=== PATIENT | female | born 1940 | race Caucasian/White ===

== ENCOUNTER 2017-10-05 12:52 | Inpatient (IN) | payer MEDICARE, OTHER ==
[2017-10-05 13:34] LABS: ADD MAN DIFF? NO
[2017-10-05 13:35] LABS: BASOPHILS % 0.1 % (0.0-2.0); HEMATOCRIT 36.4 % (37.0-47.0); HEMOGLOBIN 11.5 g/dl (12.0-16.0); LYMPHOCYTES # 0.8 10^3/ul (0.8-2.9); MEAN CORPUSCULAR HGB CONC 31.6 g/dl (32.0-37.0); MEAN CORPUSCULAR VOLUME 85.4 fl (82.0-101.0); MEAN PLATELET VOLUME 10.7 fl (7.4-10.4); MONOCYTE # 0.7 10^3/ul (0.3-0.9); MONOCYTES % 5.2 % (0.0-11.0); NEUTROPHIL # 11.1 10^3/ul (1.6-7.5); NEUTROPHILS % 88.3 % (39.0-77.0); PLATELET COUNT 436 10^3/UL (140-415); RED BLOOD COUNT 4.26 10^6/ul (4.20-5.40); RED CELL DISTRIBUTION WIDTH 16.3 % (11.5-14.5)
[2017-10-05 13:35] LABS: WHITE BLOOD COUNT 12.6 10^3/ul (4.8-10.8)
[2017-10-05 13:52] LABS: INR 1.04; PROTIME 13.7 Sec (11.9-14.9); PT RATIO 1.1
[2017-10-05 13:53] LABS: PARTIAL THROMBOPLASTIN TIME 30.4 Sec (25.0-35.0)
[2017-10-05 13:55] LABS: ALANINE AMINOTRANSFERASE 26 IU/L (13-69); ALBUMIN 4.5 g/dl (3.3-4.9); ALBUMIN/GLOBULIN RATIO 1.21; ALKALINE PHOSPHATASE 159 IU/L (42-121); ANION GAP 18 (8-16); ASPARTATE AMINO TRANSFERASE 16 IU/L (15-46); BILIRUBIN,INDIRECT 0.3 mg/dl (0-1.1); BILIRUBIN,TOTAL 0.3 mg/dl (0.2-1.3); BLOOD UREA NITROGEN 36 mg/dl (7-20); CALCIUM 9.8 mg/dl (8.4-10.2); CARBON DIOXIDE 27 mmol/L (21-31); CHLORIDE 108 mmol/L (97-110); MAGNESIUM 2.3 mg/dl (1.7-2.5); PHOSPHORUS 3.7 mg/dl (2.5-4.9); SODIUM 149 mmol/L (135-144); TOTAL PROTEIN 8.2 g/dl (6.1-8.1)
[2017-10-05 13:55] LABS: LACTIC ACID 1.7 mmol/L (0.5-2.0)
[2017-10-05 14:03] LABS: GLUCOSE 443 mg/dl (70-220)
[2017-10-05] MEDS: SOD CHLORIDE 0.9% 1,400 ML IV (14:03)
[2017-10-05 14:11] LABS: TROPONIN-I < 0.012 ng/ml (0.00-0.12)
[2017-10-05 14:12] LABS: AADO2 Arterial 34.2 mmHg (7.0-24.0); Allen Test ACCEPTAB; Arterial Base Excess 2.2 mmol/L (-3.0-3); Arterial Blood Gas Oxygen Sat 98.4 mmHG (95.0-100.0); Arterial COHb 0 % (0.0-3.0); Arterial Fraction of Oxyhgb 98.1 % (93.0-99.0); Arterial HCO3 24.3 mmol/L (22.0-26.0); Arterial MetHb 0.3 % (0.0-1.5); MODE NASAL CANNULA; Site Left Radial
[2017-10-05 15:43] LABS: ADD UMIC YES; UR ASCORBIC ACID 40 mg/dL (NEGATIVE); UR BACTERIA MANY /HPF (NONE SEEN); UR BILIRUBIN (Dip) NEGATIVE (NEGATIVE); UR BLOOD (Dip) NEGATIVE (NEGATIVE); UR CLARITY TURBID (CLEAR); UR COLOR RED (YELLOW); UR GLUCOSE (Dip) 3+ mg/dL (NEGATIVE); UR KETONES (Dip) TRACE mg/dL (NEGATIVE); UR LEUKOCYTE ESTERASE (Dip) TRACE Leu/ul (NEGATIVE); UR MUCUS FEW /HPF (NONE SEEN); UR NITRITE (Dip) POSITIVE (NEGATIVE); UR RBC 2 /HPF (0-5); UR SPECIFIC GRAVITY (Dip) 1.025 (1.003-1.030); UR TOTAL PROTEIN (Dip) 2+ mg/dl (NEGATIVE); UR UROBILINOGEN (Dip) NEGATIVE (NEGATIVE); UR WBC 5 /HPF (0-5)
[2017-10-05] MEDS: PIPER-TAZO 3.375 GM IV (PMX) 100 ML IVPB (17:04)
[2017-10-05] MEDS: INSULIN LISPRO 100 UNIT/ML VIAL SC (17:17)
[2017-10-05] MEDS ORDERED: MAGNESIUM HYDROXIDE 30ML CUP GTB (18:00)
[2017-10-05] MEDS ORDERED: MAGNESIUM HYDROXIDE 30ML CUP PO (18:00)
[2017-10-05] MEDS ORDERED: DOCUSATE SODIUM 100 MG CAP PO (18:00)
[2017-10-05] MEDS ORDERED: NACL 0.9% 3 ML SYG IV (18:00)
[2017-10-05] MEDS ORDERED: hydrALAzine 20 MG INJ IV (18:00)
[2017-10-05] MEDS ORDERED: ACETAMINOPHEN 325 MG TAB PO (18:00)
[2017-10-05] MEDS ORDERED: ONDANSETRON 4 MG INJ IV (18:00)
[2017-10-05] MEDS ORDERED: ACETAMINOPHEN 650MG/20.3ML CUP GTB ×2 (18:00)
[2017-10-05] MEDS ORDERED: HYDROCODONE/APAP (5/325) TAB PO (18:00)
[2017-10-05] MEDS ORDERED: GLUCOSE GEL 15 GRAM TUBE PO ×2 (19:30)
[2017-10-05] MEDS ORDERED: GLUCAGON 1 MG INJ IM (19:30)
[2017-10-05] MEDS ORDERED: DEXTROSE 50% 50 ML SYRINGE IV ×2 (19:30)
[2017-10-05] MEDS ORDERED: GLUCOSE GEL 15 GRAM TUBE BUCCAL (19:30)
[2017-10-05 19:44] LABS: LACTIC ACID 3.6 mmol/L (0.5-2.0)
[2017-10-05] MEDS ORDERED: SOD CHLORIDE 0.9% 500 ML IV (20:00)
[2017-10-05] MEDS: INSULIN ASPART [NOVOLOG] 3 ML PEN SC ×2 (20:00→21:00)
[2017-10-05] MEDS: SOD CHLORIDE 0.9% 1,000 ML IV (20:10)
[2017-10-05] MEDS: SOD CHLORIDE 0.9% 500 ML IV (22:03)
[2017-10-05] MEDS: DOCUSATE SODIUM 100 MG CAP PO (22:35)
[2017-10-05] MEDS: BACLOFEN 10 MG TAB PO (22:35)
[2017-10-05] MEDS: METOPROLOL 25 MG TAB GTB (22:36)
[2017-10-05] MEDS: INSULIN GLARGINE [LANtus] 3 ML PEN SC (22:39)
[2017-10-05 22:59] LABS: LACTIC ACID 1.2 mmol/L (0.5-2.0)
[2017-10-05] MEDS: MEROPENEM 1 GM/50ML(PMX) 50 ML IV (23:09)
[2017-10-06] MEDS: ACCU-CHEK XX (01:12)
[2017-10-06] MEDS: hydrALAzine 20 MG INJ IV ×2 (02:19→05:22)
[2017-10-06] MEDS: ACETAMINOPHEN 650 MG SUPP PR (05:20)
[2017-10-06 05:22] LABS: ADD MAN DIFF? NO
[2017-10-06] MEDS: PANTOPRAZOLE (EC) 40 MG TAB PO (05:24)
[2017-10-06 05:27] LABS: BASOPHILS % 0.2 % (0.0-2.0); HEMATOCRIT 34.2 % (37.0-47.0); HEMOGLOBIN 10.6 g/dl (12.0-16.0); LYMPHOCYTES # 0.9 10^3/ul (0.8-2.9); LYMPHOCYTES % 7.5 % (15.0-51.0); MEAN CORPUSCULAR HEMOGLOBIN 27.1 pg (29.0-33.0); MEAN CORPUSCULAR VOLUME 87.5 fl (82.0-101.0); MEAN PLATELET VOLUME 10.8 fl (7.4-10.4); MONOCYTE # 0.4 10^3/ul (0.3-0.9); MONOCYTES % 3.6 % (0.0-11.0); NEUTROPHIL # 10.6 10^3/ul (1.6-7.5); NEUTROPHILS % 88.2 % (39.0-77.0); PLATELET COUNT 434 10^3/UL (140-415); RED BLOOD COUNT 3.91 10^6/ul (4.20-5.40); RED CELL DISTRIBUTION WIDTH 16.5 % (11.5-14.5)
[2017-10-06 05:48] LABS: HEMOGLOBIN A1C 8.1 % (0-5.9)
[2017-10-06 05:50] LABS: ALANINE AMINOTRANSFERASE 16 IU/L (13-69); ALBUMIN 3.8 g/dl (3.3-4.9); ALBUMIN/GLOBULIN RATIO 1.02; ALKALINE PHOSPHATASE 122 IU/L (42-121); ANION GAP 15 (8-16); ASPARTATE AMINO TRANSFERASE 16 IU/L (15-46); BILIRUBIN,INDIRECT 0.2 mg/dl (0-1.1); BILIRUBIN,TOTAL 0.2 mg/dl (0.2-1.3); BLOOD UREA NITROGEN 23 mg/dl (7-20); CALCIUM 9.6 mg/dl (8.4-10.2); CARBON DIOXIDE 26 mmol/L (21-31); CHLORIDE 114 mmol/L (97-110); CREATININE 0.58 mg/dl (0.44-1.00); GLUCOSE 276 mg/dl (70-220); MAGNESIUM 2.1 mg/dl (1.7-2.5); PHOSPHORUS 2.6 mg/dl (2.5-4.9); POTASSIUM 3.2 mmol/L (3.5-5.1); SODIUM 152 mmol/L (135-144); TOTAL PROTEIN 7.5 g/dl (6.1-8.1)
[2017-10-06 06:13] LABS: THYROID STIMULATING HORMONE 0.147 MIU/L (0.465-4.680)
[2017-10-06] MEDS: SOD CHLORIDE 0.9% 1,000 ML IV (06:15)
[2017-10-06] MEDS: INSULIN ASPART [NOVOLOG] 3 ML PEN SC ×4 (10:03→21:00)
[2017-10-06] MEDS: BACLOFEN 10 MG TAB PO ×2 (10:03→21:58)
[2017-10-06] MEDS: DOCUSATE SODIUM 100 MG CAP PO (10:03)
[2017-10-06] MEDS: ASPIRIN 81 MG TAB GTB (10:04)
[2017-10-06] MEDS: AMLODIPINE 5 MG TAB GTB (10:04)
[2017-10-06] MEDS: METOPROLOL 25 MG TAB GTB ×2 (10:04→21:59)
[2017-10-06] MEDS: MULTIVITAMINS THERAPEUTIC TAB GTB (10:04)
[2017-10-06] MEDS: INSULIN GLARGINE [LANtus] 3 ML PEN SC ×2 (10:05→22:02)
[2017-10-06] MEDS: MEROPENEM 1 GM/50ML(PMX) 50 ML IV ×2 (10:09→21:59)
[2017-10-06] MEDS: ENOXAPARIN 30 MG/0.3 ML SYG SC (10:11)
[2017-10-06] MEDS: ACETAMINOPHEN 650MG/20.3ML CUP GTB (13:45)
[2017-10-06] MEDS: POTASSIUM CHLORIDE (SR) 20 MEQ TAB PO (13:57)
[2017-10-06] MEDS: POTASSIUM CHLORIDE 20 MEQ POWDER FOR ORAL SOLN PO (14:24)
[2017-10-06] MEDS: SOD CHLORIDE 0.45% 1,000 ML IV (14:24)
[2017-10-06] MEDS: DOCUSATE SODIUM 10 MG/ML (10ML CUP) GTB ×2 (14:24→21:59)
[2017-10-06] MEDS: ZOLPIDEM 5 MG TAB GTB (23:21)
[2017-10-07] MEDS: ACCU-CHEK XX (02:00)
[2017-10-07] MEDS: SOD CHLORIDE 0.45% 1,000 ML IV (02:11)
[2017-10-07] MEDS: PANTOPRAZOLE (EC) 40 MG TAB PO (05:38)
[2017-10-07 05:48] LABS: ADD MAN DIFF? NO
[2017-10-07 05:56] LABS: WHITE BLOOD COUNT 9.3 10^3/ul (4.8-10.8)
[2017-10-07 05:56] LABS: BASOPHILS % 0.2 % (0.0-2.0); EOSINOPHILS % 0.3 % (0.0-7.0); HEMATOCRIT 30.5 % (37.0-47.0); HEMOGLOBIN 9.5 g/dl (12.0-16.0); LYMPHOCYTES # 1.3 10^3/ul (0.8-2.9); MEAN CORPUSCULAR HEMOGLOBIN 27.1 pg (29.0-33.0); MEAN CORPUSCULAR HGB CONC 31.1 g/dl (32.0-37.0); MEAN CORPUSCULAR VOLUME 87.1 fl (82.0-101.0); MEAN PLATELET VOLUME 10.5 fl (7.4-10.4); MONOCYTE # 0.6 10^3/ul (0.3-0.9); NEUTROPHIL # 7.4 10^3/ul (1.6-7.5); NEUTROPHILS % 79.1 % (39.0-77.0); PLATELET COUNT 400 10^3/UL (140-415); RED CELL DISTRIBUTION WIDTH 16.4 % (11.5-14.5)
[2017-10-07 06:21] LABS: ALANINE AMINOTRANSFERASE 21 IU/L (13-69); ALBUMIN 3.4 g/dl (3.3-4.9); ALBUMIN/GLOBULIN RATIO 1.03; ALKALINE PHOSPHATASE 87 IU/L (42-121); ANION GAP 11 (8-16); ASPARTATE AMINO TRANSFERASE 19 IU/L (15-46); BILIRUBIN,INDIRECT 0.2 mg/dl (0-1.1); BILIRUBIN,TOTAL 0.2 mg/dl (0.2-1.3); BLOOD UREA NITROGEN 23 mg/dl (7-20); CALCIUM 9.3 mg/dl (8.4-10.2); CARBON DIOXIDE 28 mmol/L (21-31); CHLORIDE 112 mmol/L (97-110); CREATININE 0.56 mg/dl (0.44-1.00); GLUCOSE 152 mg/dl (70-220); POTASSIUM 3.2 mmol/L (3.5-5.1); SODIUM 148 mmol/L (135-144); TOTAL PROTEIN 6.7 g/dl (6.1-8.1)
[2017-10-07 06:22] LABS: PHOSPHORUS 2.3 mg/dl (2.5-4.9)
[2017-10-07 06:22] LABS: MAGNESIUM 2.2 mg/dl (1.7-2.5)
[2017-10-07 06:33] LABS: FREE THYROXINE INDEX (Calc) 2.09 ug/ml (0.65-3.89); T3 UPTAKE 40.2 % (23.5-40.5); T4 (THYROXINE) 5.2 ug/dl (5.5-11.0)
[2017-10-07 06:47] LABS: THYROID STIMULATING HORMONE 0.347 MIU/L (0.465-4.680)
[2017-10-07 07:30] LABS: FREE T4 (FREE THYROXINE) 0.86 ng/dl (0.78-2.44)
[2017-10-07] MEDS: BACLOFEN 10 MG TAB PO ×2 (10:33→21:00)
[2017-10-07] MEDS: AMLODIPINE 5 MG TAB GTB (10:33)
[2017-10-07] MEDS: DOCUSATE SODIUM 10 MG/ML (10ML CUP) GTB ×2 (10:33→13:00)
[2017-10-07] MEDS: MULTIVITAMINS THERAPEUTIC TAB GTB (10:34)
[2017-10-07] MEDS: METOPROLOL 25 MG TAB GTB (10:34)
[2017-10-07] MEDS: INSULIN ASPART [NOVOLOG] 3 ML PEN SC ×3 (10:36→19:00)
[2017-10-07] MEDS: INSULIN GLARGINE [LANtus] 3 ML PEN SC (10:36)
[2017-10-07] MEDS: ENOXAPARIN 30 MG/0.3 ML SYG SC (10:37)
[2017-10-07] MEDS: ASPIRIN 81 MG TAB GTB (10:40)
[2017-10-07] MEDS: MEROPENEM 1 GM/50ML(PMX) 50 ML IV (10:40)
[2017-10-07] MEDS: POTASSIUM CHLORIDE (SR) 20 MEQ TAB PO (15:35)
[2017-10-07] MEDS: ERTAPENEM SODIUM 1 GM in SOD CHLORIDE 0.9% 100 ML IVPB (16:42)
[2017-10-07] MEDS: MUPIROCIN 2% 22 GM OINT TOP (16:42)
[2017-10-07] MEDS: MULTIVITAMINS 30 ML CUP GTB (16:42)
[2017-10-07] MEDS ORDERED: LORAZEPAM 2 MG INJ IM (21:00)
[2017-10-07] MEDS ORDERED: HYOSCYAMINE 0.125 MG SUBL TAB SL (21:00)
[2017-10-07] MEDS ORDERED: morphine 2 MG INJ IV (21:00)
[2017-10-07] MEDS ORDERED: INSULIN GLARGINE [LANtus] 3 ML PEN SC (21:00)
[2017-10-07] MEDS: morphine (DRIP) 100 MG/100 ML 100 ML IV (23:53)
[2017-10-08] MEDS ORDERED: ASCORBIC ACID 500 MG TAB GTB (09:00)
[2017-10-08] MEDS: BACLOFEN 10 MG TAB PO (09:00)
[2017-10-08] MEDS: ERTAPENEM SODIUM 1 GM in SOD CHLORIDE 0.9% 100 ML IVPB (16:39)
[2017-10-09] MEDS ORDERED: ONDANSETRON 4 MG INJ IV (10:00)
[2017-10-09] MEDS ORDERED: ONDANSETRON (ODT) 4 MG TAB ODT (10:00)
[2017-10-09] MEDS ORDERED: LORAZEPAM 2 MG INJ IV (10:00)
[2017-10-10] MEDS ORDERED: ALBUTEROL/IPRATROPIUM (NEB) 3 ML AMP HHN (10:00)
[2017-10-10] MEDS: morphine (DRIP) 100 MG/100 ML 100 ML IV (11:02)
[2017-10-10] MEDS ORDERED: VITAMIN A & D 5 GM OINT PACKET TOP (11:05)
== END 2017-10-11 16:50 | disposition expired | DRG 871 ==
LOC: E/R 12:52 → MS1 16:52
DX: A41.51 Sepsis due to Escherichia coli [E. coli] (principal); G93.49 Other encephalopathy; E43 Unspecified severe protein-calorie malnutrition; E87.0 Hyperosmolality and hypernatremia; N39.0 Urinary tract infection, site not specified; E11.65 Type 2 diabetes mellitus with hyperglycemia; G20 Parkinson's disease; F02.80 Dementia in other diseases classified elsewhere, unspecified severity, without behavioral disturbance, psychotic disturbance, mood disturbance, and anxiety; Z66 Do not resuscitate; I10 Essential (primary) hypertension; Z87.891 Personal history of nicotine dependence; F32.9 Major depressive disorder, single episode, unspecified; F41.9 Anxiety disorder, unspecified; R13.10 Dysphagia, unspecified; Z93.1 Gastrostomy status; E86.0 Dehydration; Z88.0 Allergy status to penicillin; E89.0 Postprocedural hypothyroidism; Z51.5 Encounter for palliative care; Z22.322 Carrier or suspected carrier of Methicillin resistant Staphylococcus aureus
CPT/HCPCS: 36415; 36600; 71045; 80053; 81001; 82803; 82962; 83036; 83605; 83735; 84100; 84436; 84439; 84443; 84479; 84484; 85025; 85610; 85730; 87040; 87081; 87086; 93005; 96372; 96374; 99285-25